=== PATIENT | female | born 1985 | race Caucasian/White ===

== ENCOUNTER 2025-06-04 02:04 | Emergency (ER) | payer SELFPAY ==
[~2025-06-04] VITALS: Ht 147.3 cm; Wt 61.2 kg
[2025-06-04 02:30] VITALS: TEMP 97.5
[2025-06-04] MEDS: SODIUM CHLORIDE 0.9% 1000ML 1,000 ML IV ONE (02:51)
[2025-06-04] MEDS: HALOPERIDOL LACTATE 5 MG/ML VIAL IV ONE (02:51)
[2025-06-04 02:59] LABS: BASOPHILS % 0.4 % (0.0-1.0); EOSINOPHILS % 1.2 % (0.0-6.0); LYMPHOCYTES % 18.6 % (18.0-39.1); MONOCYTES % 4.9 % (4.4-11.3); NEUTROPHILS % 74.4 % (38.7-80.0); RED CELL DISTRIBUTION WIDTH 12.5 % (11.7-14.4)
[2025-06-04 03:04] LABS: LEUKOCYTE ESTERASE ,URINE TRACE (NEGATIVE); PROTEIN,URINE DIPSTICK 1+ (NEGATIVE); URINE UROBILINOGEN 1 mg/dL (0.2 - 1)
[2025-06-04 03:14] LABS: EPITHELIAL CELLS,URINE MANY /LPF
[2025-06-04 03:22] LABS: EST GLOMERULAR FILTRATION RATE 100 ML/MIN (>=60)
[2025-06-04] MEDS ORDERED: IOPAMIDOL 370 MG/ML 100 ML INFUS..BTL INJ ONE (03:45)
[2025-06-04 04:00] VITALS: PULSE 79; RESP 17
[2025-06-04] MEDS ORDERED: LEVOFLOXACIN750 MG PO (04:37)
[2025-06-04] MEDS ORDERED: FLOMAX0.4 MG PO (04:37)
[2025-06-04] MEDS ORDERED: ONDANSETRON ODT4 MG PO (04:37)
[2025-06-04] MEDS ORDERED: ULTRAM 50MG50 MG PO (04:38)
[2025-06-04] MEDS: KETOROLAC TROMETHAMINE 30 MG/ML VIAL IV STA (04:56)
[2025-06-04 04:58] VITALS: BP 112/71; PULSE 85; RESP 18; TEMP 97.8; O2SAT 98
== END 2025-06-04 05:30 | disposition home or self-care (01) ==
LOC: ER 02:08
DX: R10.12 Left upper quadrant pain (principal); N20.0 Calculus of kidney; R11.2 Nausea with vomiting, unspecified; K59.00 Constipation, unspecified
CPT/HCPCS: 36415; 74177; 80053; 81001; 83690; 84702; 85025; 99284; J1630; J1885; J7030; Q9967